=== PATIENT | male | born 1960 | race Hispanic/Latino ===

== ENCOUNTER 2016-12-14 12:39 | Emergency (ER) | payer MEDICAID ==
[2016-12-14 12:45] VITALS: BP 120/80; PULSE 82; RESP 18; TEMP 98.2; O2SAT 100; BMI 25.7
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
== END 2016-12-14 13:10 | disposition home or self-care (01) ==
LOC: ED 12:39
DX: Z48.02 Encounter for removal of sutures (principal)